=== PATIENT | female | born 1930 | race Caucasian/White ===

== ENCOUNTER 2016-10-17 12:17 | Outpatient (CLI) | payer MEDICARE ==
[2016-10-17 13:32] LABS: #Basophils 0.1 thou/uL (0.0-0.2); #Eosinphils 0.2 thou/uL (0.0-0.7); #Lymphocytes 1.5 thou/uL (1.20-3.40); #Monocytes 0.4 thou/uL (0.11-0.59); #Neutrophils 3.7 thou/uL (1.40-6.50); %Basophils 1.9 % (0.0-1.0); %Monocytes 6.8 % (0.0-10.0); Anion Gap 12 mmol/L (10-20); BUN (Urea Nitrogen) 25 mg/dL (9.8-20.1); Calc. Creatinine Clearance 0 mL/min (70-130); Carbon Dioxide 26 mmol/L (23-31); Chloride 105 mmol/L (98-107); Estimated GFR-MDRD 46; Hematocrit 35.1 % (36.0-47.0); Mean Platelet Volume 5.7 fL (7.4-10.4); Red Blood Cell (RBC) Count 4.02 mill/uL (4.20-5.40); White Blood Cell (WBC) Count 5.8 thou/uL (4.8-10.8)
[2016-10-17 13:33] LABS: ALT (SGPT) 6 U/L (0-55); AST (SGOT) 13 U/L (5-34); Alkaline Phosphatase 54 U/L (40-150); Bilirubin, Total 0.4 mg/dL (0.2-1.2); Calcium 10.2 mg/dL (7.8-10.44); Globulin 2.8 g/dL (2.4-3.5); LDL Cholesterol, Calculated 117 mg/dL; Protein, Total 6.7 g/dL (5.8-8.1)
== END 2016-10-17 12:18 ==
LOC: HPCALD 12:17
PROVIDERS: ATTEND Family Medicine
DX: Z13.6 Encounter for screening for cardiovascular disorders (principal); I10 Essential (primary) hypertension; R41.3 Other amnesia
CPT/HCPCS: 36415; 80053; 80061; 82607; 84443; 85025

== ENCOUNTER 2018-01-17 16:31 | Inpatient (IN) | payer MEDICARE ==
[2018-01-17] MEDS ORDERED: cefTRIAXone\\ROCEPHIN 2 GM VIAL ONE (16:51)
[2018-01-17] MEDS ORDERED: Sodium Chloride 0.9% 100 ML ONE (16:51)
[2018-01-17 17:24] LABS: ALT (SGPT) 15 U/L (8-55); AST (SGOT) 24 U/L (5-34); Alkaline Phosphatase 73 U/L (40-150); Anion Gap 16 mmol/L (10-20); BUN (Urea Nitrogen) 20 mg/dL (9.8-20.1); Bilirubin, Total 0.5 mg/dL (0.2-1.2); Calc. Creatinine Clearance 0 mL/min (70-130); Calcium 10.4 mg/dL (7.8-10.44); Carbon Dioxide 23 mmol/L (23-31); Chloride 103 mmol/L (98-107); Estimated GFR-MDRD 42; Globulin 3.6 g/dL (2.4-3.5); Glucose 101 mg/dL (83-110); Protein, Total 7.6 g/dL (6.0-8.3); Sodium 138 mmol/L (136-145)
[2018-01-17 17:29] LABS: #Basophils 0.1 thou/uL (0.0-0.2); #Eosinphils 0.1 thou/uL (0.0-0.7); #Lymphocytes 1.3 thou/uL (1.20-3.40); #Monocytes 0.7 thou/uL (0.11-0.59); #Neutrophils 4.5 thou/uL (1.40-6.50); %Basophils 1.2 % (0.0-1.0); %Lymphocytes 19.7 % (21.0-51.0); %Monocytes 10.2 % (0.0-10.0); %Neutrophils 67.9 % (42.0-75.0); Band 3 % (5-11); Eosinophils 1 % (0-10); Lymphocytes 8 % (21-51); MDiff Complete? YES; Mean Corpuscular HGB CONC 33.6 g/dL (32.0-36.0); Mean Corpuscular Hemoglobin 27.9 pg (27.0-31.0); Mean Corpuscular Volume 82.9 fl (81.0-99.0); Monocytes 9 % (0-10); Neutrophil 79 % (42-75); Platelet Count 257 thou/uL (130-400); RBC Distribution Width 13.3 % (11.5-14.5); Red Blood Cell (RBC) Count 3.94 mill/uL (4.20-5.40); White Blood Cell (WBC) Count 6.7 thou/uL (4.8-10.8)
[2018-01-17] MEDS ORDERED: methylPREDNISolone Sod Succ/PF 125 MG/2 ML VIAL ONE (17:32)
[2018-01-17 17:36] LABS: Bilirubin Small (Negative); Blood, Urine Negative (Negative); Clarity Slightly Cloudy (Clear); Glucose, Urine (Dipstick) Negative (Negative); Leukocyte Trace (Negative); Nitrite Negative (Negative); Protein, Urine (Dipstick) 100 mg/dL (Neg-Trace); Urobilinogen 0.2 mg/dL (0.2-1.0); pH, Urine 5.5 (5.0-9.0)
[2018-01-17 17:45] LABS: Bacteria/HPF Rare-Few HPF (None Seen); Crystals/HPF None Seen HPF (Negative); Hyaline Casts/LPF NONE SEEN LPF (0-3 Hyaline); Other Casts/LPF None Seen LPF (0-3 Hyaline); Oval Fat Bodies/HPF None Seen HPF (None Seen); RBC/HPF 0-3 HPF (0-3); Renal Epithelial None Seen HPF (0-3); Sperm/HPF None Seen HPF (None Seen); Squamous Epithelial 0-3 HPF (0-3); Transitional Epithelial NONE SEEN HPF (0-3); Trichomonas/HPF None Seen HPF (None Seen); WBC/HPF 0-3 HPF (0-3); Yeast-All Forms None Seen HPF (None Seen)
[2018-01-17] MEDS ORDERED: Azithromycin 250 MG TAB ONE (18:44)
[2018-01-17] MEDS ORDERED: Ondansetron ODT 4 MG TAB SL PRN (20:14)
[2018-01-17] MEDS ORDERED: Ondansetron HCl/PF 4 MG/2 ML Vial IVP PRN (20:14)
[2018-01-17] MEDS ORDERED: Dextrose 5 %-0.45 % NaCl 1,000 ML IV SCH ×2 (20:15→21:53)
[2018-01-17] MEDS ORDERED: Albuterol Sulfate 2.5 mg/3 ml Neb NEB PRN (20:21)
[2018-01-17 20:24] VITALS: BMI 25.9
--- NOTE | 2018-01-17 21:55 | RAD ---
PORTABLE CHEST: 01/17/2018 COMPARISON: 06/21/2006 FINDINGS: The heart is normal in size. Dense calcification is seen in the aortic arch. There is no vascular c ongestion, edema, or pleural effusion. There is no sign of pneumonia. A right shoulder arthroplasty has been done since the prior study. There are severe degenerative changes in the left glenohumeral joint. IMPRESSION: Arteriosclerosis but no acute thoracic finding. POS: HOME
[2018-01-18] MEDS ORDERED: methylPREDNISolone Sod Succ/PF 125 MG/2 ML VIAL IVP SCH (02:00)
--- NOTE | 2018-01-18 07:00 | RAD ---
CHEST 2 VIEWS: Date: 01/18/18 Comparison is made with the 01/17/18 study. FINDINGS: The heart size is stable. Calcification is seen in the aortic arch as usual. The lungs are slightly h yperinflated. There may be a small hiatal hernia. No major lobar consolidation seen. There does appea r to be a small amount of fluid in one of the major fissures on the lateral view. A small amount of l ingular haziness is present, which may or may not be significant. IMPRESSION: Minimal changes since the prior day. Possibly some lingular haziness, but no large lobar consolidatio ns were seen. POS: HOME
--- NOTE | 2018-01-18 08:08 | HP ---
DATE OF ADMISSION: 01/17/2018 CHIEF COMPLAINT: Upper respiratory infection. HISTORY OF PRESENT ILLNESS: An 87-year-old female with underlying dementia who lives with her daughter, was brought to [facility] Emergency Department yesterday evening with complaint of a 4-day history of upper respiratory symptoms including cough, productive of yellow phlegm associated with chills, subjective warmth, nausea and poor appetite, which had not been improving. In the emergency department, she was found to be hypoxic. Initial temperature was 99.7 and she displayed mild tachypnea with rhonchi. She was started on IV Solu- Medrol, Rocephin and Zithromax empirically. In addition to this, it was deemed that she was mildly dehydrated thus she was started on normal saline intravenous fluids. She was admitted to the floor with diagnosis of upper respiratory infection and hypoxia. Overnight, she has done well and upon interview this morning feels to be improved. She remains on supplemental oxygen at this time. She did have intermittent cough overnight. She has remained afebrile overnight. The patient reports her intake and output to be at her baseline. She appears to have good insight into her reason for admission and understands her goal to discharge home when she is able to return to satisfactory oxygenation on room air. PAST MEDICAL HISTORY: Dementia, hypertension, hyperlipidemia, gastroesophageal reflux disease, urge urinary incontinence, anxiety and depression. PAST SURGICAL HISTORY: Right shoulder replacement and a right mastectomy. SOCIAL HISTORY: Nonsmoker. Denies alcohol or illicit drug use. She lives with her daughter and spouse is . She has another daughter and a son as well. ALLERGIES: No known drug allergies. FAMILY HISTORY: Noncontributory. CURRENT MEDICATIONS: Include aspirin 81 mg p.o. daily, VESIcare 5 mg p.o. daily , fluoxetine 10 mg p.o. daily, atorvastatin 10 mg p.o. at bedtime, amlodipine 10 mg p.o. daily, donepezil 10 mg p.o. at bedtime, memantine 5 mg p.o. q.8 hours daily, lisinopril 10 mg p.o. daily, omeprazole 20 mg p.o. daily. REVIEW OF SYSTEMS: GENERAL: Denies fatigue. ENT: Denies sore throat, nasal drainage or congestion. CARDIOVASCULAR: Denies chest pain or palpitations. RESPIRATORY: Denies shortness of breath. Does complain of an intermittent cough. GASTROINTESTINAL: Denies abdominal pain, nausea, vomiting, diarrhea or constipation. GENITOURINARY: Denies dysuria or hematuria. MUSCULOSKELETAL: Denies joint swelling. DERMATOLOGY: Denies rash. NEUROLOGIC: Denies headache. LABORATORY DATA: White blood cell count 6.7, H&H is 11.0 and 32.7, platelets 257. Sodium 138, potassium 4.0, BUN is 20, creatinine 1.20. Lactic acid 1.2. LFTs are normal. IMAGING: Chest x-ray 01/17/2018 shows arteriosclerosis, but no acute thoracic finding. Chest x-ray 01/18/2018 shows minimal changes since the prior day, possibly some lingular haziness, but no large lobar consolidations were seen. PHYSICAL EXAMINATION: VITAL SIGNS: Temperature is 97.8, pulse is 77, respiratory rate is 16, oxygen is 99% on 2 liters, blood pressure is 150/68. GENERAL: She is alert and oriented to person, place and time, in no acute distress. EYES: Conjunctivae are clear. Extraocular muscles are intact bilaterally. No discharge. CARDIOVASCULAR: Regular rate and rhythm, normal S1, S2. No murmurs, rubs or gallops. RESPIRATORY: Few scattered rhonchi with no respiratory distress, no wheezes. Nasal cannula is in place on 2 liters of oxygen. ABDOMEN: Soft, nontender to palpation. No rebound or guarding. EXTREMITIES: No clubbing, cyanosis or edema. MUSCULOSKELETAL: Within normal limits. SKIN: No rash. NEUROLOGIC: Cranial nerves II-XII are grossly intact, nonfocal exam. ASSESSMENT AND PLAN: 1. Hypoxia. The patient is on supplemental oxygen. We will work to wean this with plan to keep her oxygen saturations greater than 92%. She has albuterol nebs q.4 hours p.r.n., I have encouraged the patient to use incentive spirometer. 2. Bronchitis. We will discontinue IV Rocephin and IV Zithromax. Replace this with a p.o. course of azithromycin. We will also provide 5-day course of 20 mg p.o. prednisone as IV Solu-Medrol was not continued overnight. Plan to repeat CBC, CMP. 3. Dementia. We will resume the patient's Namenda and donepezil. She appears to be at her baseline. 4. Hypertension. The patient is hemodynamically stable. We will resume her home blood pressure medications. 5. Hyperlipidemia. We will resume the patient's statin. 6. Anxiety, depression. We will resume patient's fluoxetine. 7. Dehydration. The patient appears euvolemic. We will discontinue normal saline intravenous fluids. 8. Prophylaxis. We will resume patient's PPI for GI prophylaxis. We will provide Lovenox for DVT prophylaxis. MTDD
[2018-01-18] MEDS: Atorvastatin Calcium 10 MG TAB PO SCH (09:07)
[2018-01-18] MEDS: Amlodipine 10 MG TAB PO SCH (09:07)
[2018-01-18] MEDS: FLUoxetine HCl 10 MG CAP PO SCH (09:07)
[2018-01-18] MEDS: predniSONE 20 MG TAB PO SCH (09:07)
[2018-01-18] MEDS: Azithromycin 250 MG TAB PO SCH (09:07)
[2018-01-18] MEDS: Enoxaparin Sodium 30 MG/0.3 ML SYRINGE SC SCH (09:08)
[2018-01-18] MEDS: Lisinopril 10 MG TAB PO SCH (09:08)
[2018-01-18] MEDS ORDERED: cefTRIAXone\\ROCEPHIN 1 GM in Sodium Chloride 0.9% 100 ML IVPB SCH (17:00)
[2018-01-18] MEDS ORDERED: Azithromycin 250 MG in Sodium Chloride 0.9% 250 ML 250 ML IVPB SCH (19:00)
[2018-01-18] MEDS ORDERED: Donepezil HCl 10 MG TAB PO SCH (21:00)
[2018-01-18] MEDS: Acetaminophen 325 MG TAB PO PRN (21:02)
[2018-01-18] MEDS: guaiFENesin/DM ER PO SCH (21:07)
[2018-01-19 05:26] LABS: #Monocytes 0.6 thou/uL (0.11-0.59); #Neutrophils 5.2 thou/uL (1.40-6.50); %Basophils 0.3 % (0.0-1.0); %Monocytes 8.6 % (0.0-10.0); %Neutrophils 76.1 % (42.0-75.0); Hemoglobin 8.7 g/dL (12.0-16.0); Mean Corpuscular HGB CONC 33.1 g/dL (32.0-36.0); Mean Corpuscular Hemoglobin 27.4 pg (27.0-31.0); Mean Corpuscular Volume 82.9 fl (81.0-99.0); Mean Platelet Volume 6.2 fL (7.4-10.4); Platelet Count 229 thou/uL (130-400); RBC Distribution Width 13.2 % (11.5-14.5); Red Blood Cell (RBC) Count 3.16 mill/uL (4.20-5.40); White Blood Cell (WBC) Count 6.8 thou/uL (4.8-10.8)
[2018-01-19 05:31] LABS: ALT (SGPT) 17 U/L (8-55); AST (SGOT) 33 U/L (5-34); Albumin 3.3 g/dL (3.4-4.8); Alkaline Phosphatase 53 U/L (40-150); Anion Gap 13 mmol/L (10-20); BUN (Urea Nitrogen) 20 mg/dL (9.8-20.1); Bilirubin, Total 0.3 mg/dL (0.2-1.2); Calc. Creatinine Clearance 33 mL/min (70-130); Calcium 10.1 mg/dL (7.8-10.44); Carbon Dioxide 22 mmol/L (23-31); Chloride 109 mmol/L (98-107); Estimated GFR-MDRD 52; Globulin 2.9 g/dL (2.4-3.5); Glucose 113 mg/dL (83-110); Potassium 4.4 mmol/L (3.5-5.1); Protein, Total 6.2 g/dL (6.0-8.3); Sodium 140 mmol/L (136-145)
[2018-01-19 06:43] VITALS: BP 152/67; TEMP 98.3
[2018-01-19] MEDS ORDERED: Guaifenesin DM 100-10/5 ML UDCUP PO PRN (09:35)
[2018-01-19] MEDS: predniSONE 20 MG TAB PO SCH (09:39)
[2018-01-19] MEDS: Azithromycin 250 MG TAB PO SCH (09:39)
[2018-01-19] MEDS: Lisinopril 10 MG TAB PO SCH (09:40)
[2018-01-19] MEDS: Amlodipine 10 MG TAB PO SCH (09:40)
[2018-01-19] MEDS: FLUoxetine HCl 10 MG CAP PO SCH (09:40)
[2018-01-19] MEDS: Acetaminophen 325 MG TAB PO PRN (09:41)
[2018-01-19] MEDS: Atorvastatin Calcium 10 MG TAB PO SCH (09:42)
[2018-01-19] MEDS: Enoxaparin Sodium 30 MG/0.3 ML SYRINGE SC SCH (09:42)
[2018-01-19] MEDS: guaiFENesin/DM ER PO SCH (09:55)
--- NOTE | 2018-01-19 22:47 | DIS ---
DATE OF ADMISSION: 01/17/2018 DATE OF DISCHARGE: 01/19/2018 ADMISSION DIAGNOSES: Include hypoxia, bronchitis, and dehydration. SECONDARY DIAGNOSES: Include dementia, hypertension, hyperlipidemia, anxiety, and depression. PROCEDURES: There was a chest x-ray on 01/17/2018 showing arteriosclerosis, but no acute thoracic finding. Chest x-ray on 01/18/2018 showed minimal changes since the prior day, possibly some lingular haziness, but no large lobar consolidations were seen. HOSPITAL COURSE: An 87-year-old female who was brought to [facility] Emergency Department by her daughter who she lives with, secondary to a 4-day history of worsening upper respiratory symptoms including cough, chills, and subjective warmth. She was notably hypoxic in the emergency department with initial temperature of 99.7. She was started on IV Solu-Medrol and Rocephin with Zithromax. She was admitted to the floor on supplemental O2. Chest x-ray readings are as above. She remained afebrile throughout her stay. She had no leukocytosis during her stay. She was transitioned to p.o. steroids and p.o. Zithromax during her stay. She continued to improve and was effectively weaned off supplemental oxygen. At the time of discharge, her intake and output is at her baseline. She did receive intravenous fluids overnight the first night and appears to be euvolemic at this time. She feels well and is amenable to discharge, as is her daughter at this time. DISPOSITION: The patient will discharge to her home setting where she lives with her daughter and may follow up with myself in the clinic within a week. DISCHARGE MEDICATIONS: She will complete two new medications: Azithromycin 250 mg p.o. daily x3 days and prednisone 20 mg p.o. daily x3 days. She will resume her home medications including aspirin 81 mg p.o. daily, VESIcare 5 mg p.o. daily, fluoxetine 10 mg p.o. daily, atorvastatin 10 mg p.o. at bedtime, amlodipine 10 mg p.o. daily, donepezil 10 mg p.o. at bedtime, Namenda 5 mg p.o. daily, lisinopril 10 mg p.o. daily, and omeprazole 20 mg p.o. daily. [facility]
== END 2018-01-19 13:41 | disposition home or self-care (01) | DRG 203 ==
LOC: BURERS 16:31 → BURMED 18:38
PROVIDERS: ADMIT Family Medicine; ATTEND Family Medicine
DX: J40 Bronchitis, not specified as acute or chronic (principal); R09.02 Hypoxemia; F03.90 Unspecified dementia, unspecified severity, without behavioral disturbance, psychotic disturbance, mood disturbance, and anxiety; E86.0 Dehydration; I10 Essential (primary) hypertension; E78.5 Hyperlipidemia, unspecified; K21.9 Gastro-esophageal reflux disease without esophagitis; F32.9 Major depressive disorder, single episode, unspecified; F41.9 Anxiety disorder, unspecified; Z90.11 Acquired absence of right breast and nipple; Z79.82 Long term (current) use of aspirin
CPT/HCPCS: 36415; 71045; 71046; 80053; 81003; 81015; 83605; 85025; 87040; 87070; 87086; 87205; 94640; 94760; 96361; 96365; 96375; J0696; J1650; J2930; J7050; J7506; J7620

== ENCOUNTER 2018-03-14 09:53 | Emergency (ER) | payer MEDICARE ==
[2018-03-14] MEDS ORDERED: Triple Antibiotic Oint 1 GM Packet ONE (10:21)
[2018-03-14] MEDS ORDERED: Ibuprofen 200 MG TAB ONE (10:25)
== END 2018-03-14 10:35 | disposition home or self-care (01) ==
LOC: BURERS 09:53
DX: L03.012 Cellulitis of left finger (principal); I10 Essential (primary) hypertension; Z87.891 Personal history of nicotine dependence; Z79.82 Long term (current) use of aspirin; Z79.899 Other long term (current) drug therapy
CPT/HCPCS: 26010

== ENCOUNTER 2018-10-15 16:42 | Emergency (ER) | payer MEDICARE ==
[2018-10-15 17:28] LABS: #Basophils 0.1 thou/uL (0.0-0.2); #Lymphocytes 1.1 thou/uL (1.20-3.40); #Monocytes 0.6 thou/uL (0.11-0.59); #Neutrophils 4.4 thou/uL (1.40-6.50); %Basophils 1.2 % (0.0-1.0); %Eosinophils 0.5 % (0.0-10.0); %Lymphocytes 17.1 % (21.0-51.0); %Monocytes 10.2 % (0.0-10.0); %Neutrophils 70.9 % (42.0-75.0); Hemoglobin 12.2 g/dL (12.0-16.0); Mean Corpuscular HGB CONC 34.1 g/dL (32.0-36.0); Mean Corpuscular Hemoglobin 28.3 pg (27.0-31.0); Mean Corpuscular Volume 83.1 fL (78.0-98.0); Mean Platelet Volume 6.7 fL (7.4-10.4); Platelet Count 262 thou/uL (130-400); RBC Distribution Width 13.3 % (11.5-14.5); White Blood Cell (WBC) Count 6.2 thou/uL (4.8-10.8)
[2018-10-15 17:44] LABS: ALT (SGPT) 11 U/L (8-55); AST (SGOT) 22 U/L (5-34); Albumin 4.2 g/dL (3.4-4.8); Alkaline Phosphatase 65 U/L (40-150); Anion Gap 16 mmol/L (10-20); BUN (Urea Nitrogen) 21 mg/dL (9.8-20.1); Bilirubin, Total 0.4 mg/dL (0.2-1.2); Calc. Creatinine Clearance 0 mL/min (70-130); Calcium 10.5 mg/dL (7.8-10.44); Carbon Dioxide 22 mmol/L (23-31); Chloride 101 mmol/L (98-107); Estimated GFR-MDRD 32; Globulin 3.7 g/dL (2.4-3.5); Glucose 97 mg/dL (83-110); Potassium 4.4 mmol/L (3.5-5.1); Protein, Total 7.9 g/dL (6.0-8.3); Sodium 135 mmol/L (136-145)
[2018-10-15] MEDS ORDERED: methylPREDNISolone Sod Succ/PF 125 MG/2 ML VIAL ONE (17:50)
[2018-10-15] MEDS ORDERED: cefTRIAXone\\ROCEPHIN 2 GM VIAL ONE (17:50)
[2018-10-15] MEDS ORDERED: Sodium Chloride 0.9% 100 ML ONE ×2 (17:50→17:56)
[2018-10-15] MEDS ORDERED: Benzonatate 100 MG CAP ONE (18:29)
--- NOTE | 2018-10-15 20:32 | RAD ---
PORTABLE CHEST: 10/15/18 COMPARISON: 01/18/18 study. HISTORY: Cough. Heart size is enlarged. There are atherosclerotic changes of the aorta. The lungs are clear of infilt rates. A right shoulder replacement is noted. IMPRESSION: Mild cardiomegaly. POS: MARK
== END 2018-10-15 19:00 | disposition home or self-care (01) ==
LOC: BURERS 16:42
DX: J20.9 Acute bronchitis, unspecified (principal); K21.9 Gastro-esophageal reflux disease without esophagitis; E78.5 Hyperlipidemia, unspecified; I10 Essential (primary) hypertension; F32.9 Major depressive disorder, single episode, unspecified; Z87.891 Personal history of nicotine dependence; Z79.899 Other long term (current) drug therapy; Z79.82 Long term (current) use of aspirin
CPT/HCPCS: 71045; 80053; 83605; 85025; 87040; 94640; 94760; 96365; 96375; J0696; J2930; J7050; J7620